=== PATIENT | female | born 1985 | race Caucasian/White ===

== ENCOUNTER 2021-09-28 10:55 | Outpatient (CLI) | payer OTHER, SELFPAY ==
[2021-09-28 13:41] LABS: Cholesterol* 147 mg/dL (90-199)
[2021-09-28 13:42] LABS: HDL Cholesterol* 59 mg/dL (>=50); LDL Cholesterol Calculated 73 mg/dL (<100); Triglycerides* 73 mg/dL (40-149)
[2021-09-28 14:08] LABS: HCG Quantitative* < 2.39 mIU/mL
== END 2021-09-28 10:56 | disposition home or self-care (01) ==
PROVIDERS: Visit Provider Advanced Practice Midwife
DX: Z01.419 Encounter for gynecological examination (general) (routine) without abnormal findings (principal); N93.9 Abnormal uterine and vaginal bleeding, unspecified
CPT/HCPCS: 80061; 84443; 84702; 87624; 88175

== ENCOUNTER 2022-05-01 09:00 | Outpatient (RCR) | payer OTHER, SELFPAY | END 2022-05-01 14:29 | disposition home or self-care (01) | PROVIDERS: Visit Provider Family Medicine | DX: M62.830 Muscle spasm of back (principal); Z51.89 Encounter for other specified aftercare | CPT/HCPCS: 97110; 97140; 97161 ==

== ENCOUNTER 2022-09-22 19:27 | Outpatient (CLI) | payer OTHER, SELFPAY ==
--- NOTE | 2022-10-02 08:36 | W.PM.SLEEP ---
Sleep Study Details Details Interpreting Provider: Tammy Date of Sleep Study: 09/22/22 Sleep Study Details: STUDY TYPE:? Home unattended ? BMI:? 22.3 ORDERING PROVIDER:Noe Lopez INDICATION:? Concerns about sleep apnea ? SLEEP SUMMARY:? 377.1 minutes monitored RESPIRATORY SUMMARY:? AHI 5.3, supine 7.6, left lateral 4.2, right lateral 3.6 Low oxygen 89 Snoring 28.3% PERIODIC LIMB MOVEMENTS OF SLEEP:? Not recorded during home study CARDIAC:? Range 56-100, mean 70.1 IMPRESSION:? Mild obstructive sleep apnea with some supine position dependency RECOMMENDATION: Treatment options if patient is symptomatic would include positional therapy, CPAP AutoSet 4-17, dental appliance and/or airway expansion surgery.
== END 2022-09-22 19:28 | disposition home or self-care (01) ==
LOC: SLEEP 19:27
PROVIDERS: PCP Family Medicine; Visit Provider Family Medicine
DX: G47.33 Obstructive sleep apnea (adult) (pediatric) (principal)
CPT/HCPCS: 95806

== ENCOUNTER 2022-12-27 09:15 | Outpatient (RCR) | payer OTHER, SELFPAY ==
--- NOTE | 2022-12-13 10:02 | PT.OPDN ---
PT [facility] Daily Note PT [facility] Daily Note Start: 10/16/22 08:52 Freq: Status: Active Protocol: Document 12/13/22 08:59 CJT (Rec: 12/13/22 10:02 CJT [email or web address]) E-signed By Yusuf Meier, PT PT OP Daily Progress Note Visit Information Note Type Daily Note Visit Number 12 Insurance Authorized Visits 16 Physician Authorized Visits eval and treat Insurance Information Recert Due Date 01/14/23 Insurance Name [employer] Insurance Information/Comments [employer] Medical Diagnosis M62.830 - muscle spasm of back M54.17 - radiculopathy, lumbosacral region M53.3 - sacrococcygeal disorders, not elsewhere classified G89.29 - other chronic pain Treating Diagnosis M54.5 - low back pain M62.830 - back spasm M79.605 - L leg pain Referring Freddy Handley MD Subjective Subjective Pt had a fall down her stairs at home yesterday. Was talking on the phone while carrying a laundry basket and tripped over a toy and fell down her stairs. She has had a significant amount of pain on the L side of her body since and presents today with a large deep purple bruise on her L thigh. Home Exercise Home Exercise Comments [id number] Objective Other/Pertinent Objective Pt presents with dark purple/ black bruising over L lateral thigh measuring approx 6x6- inch in circular pattern. Induration noted over center of bruise. Patient Instructed in Risks/Benefits Yes Therapeutic Exercise Therapeutic Exercise Minutes (minutes) 15 Therapeutic Exercise: To Restore Supine trunk rotations x 10 ea Functional Status T-spine rotations in S/L x 10 ea Cat cow x 10 Thread the needle x 45 ea 1/2 kneel hip flexor stretch x 60 ea 1/2 kneel adductor stretch x 60 ea Hip flexor to hamstring stretch x 10 ea Manual Therapy Techniques Manual Therapy Minutes (minutes) 30 Manual Therapy Techniques STM to L>R thoracic and lumbar paraspinals, QL, iliolumbar ligament, glute med/min, piriformis, hamstring, gastroc , and soleus to reduce tissue tension and improve extensibility. Treatment Minutes Timed Code Treatment Minutes 45 Total Treatment Time 45 Billing Units Manual Therapy Units 2 Therapeutic Exercise Units 1 Assessment/Impression Assessment/Impression Doreen notes that she feels much better following today's treatment. I had Doreen fill out another diagnostic form for fibromyalgia and her scoring does indicate that she meets the diagnostic criteria for fibromyalgia. Given Doreen's lingering and unusual symptoms, I do think it is prudent that she follows up with her PCP (Dr. Lopez ) as well as a lapper to seek other methods of treatment for her pain. Pt is due to have her annual exam with Dr. Lopez in January and I have encouraged her to ask about her pain and investigate the potential for diagnosis and treatment for fibromyalgia. Doreen has shown excellent progress in her strength, flexibility, and mobility during her time in therapy but she is continuing to have unusual patterns of pain that don't typically align with her level of disc herniation. I have asked Doreen's permission to reach out to Dr. Lopez regarding this issue and she gives verbal consent. Plan of Care Physical Therapy Goals STG - To be completed in 2-3 weeks: 1. Pt will report reduction in L leg pain by factor of 2 so that they may perform all ADLs with tolerable level of pain. 2. Pt will demonstrate ability to perform pelvic tilt with good coordination as indication of appropriate firing of pelvic and lumbar stabilizing muscles to provide greater support for pelvis and lumbar spine. LTG - To be completed in 8-12 weeks: 1. Pt to be I with HEP so that they may I manage progression of symptoms. 2. Pt will demonstrate 5/5 MMT for both upper and lower abdominals to provide greater support to pelvis and lumbar spine. 3. Pt will demonstrate negative slump test, SLR, Spurling's compression as indication of reduced pressure on spinal cord and or exiting nerve roots. 4. Pt will report absence of L LE pain during the day so that she may work a full day without interruptions due to pain and be involved with her children after working hours. Daily Plan of Care Continue per POC
--- NOTE | 2022-12-13 10:03 | REH.PT ---
Hi Dr. Lopez, please see my last daily note for Doreen Sweeney'young. I do feel that she would be a good candidate to explore the potential for a diagnosis of fibromyalgia. If you have any questions please don't hesitate to reach out. Doreen is due to follow-up with you for her annual visit in January. Thank you! Yusuf
== END 2023-01-15 14:50 | disposition home or self-care (01) ==
PROVIDERS: PCP Family Medicine; Visit Provider Family Medicine
DX: M62.830 Muscle spasm of back (principal); Z51.89 Encounter for other specified aftercare
CPT/HCPCS: 97110; 97140; 97161; 97530

== ENCOUNTER 2023-01-20 08:28 | Outpatient (CLI) | payer OTHER, SELFPAY | END 2023-01-20 08:29 | disposition home or self-care (01) | PROVIDERS: PCP Family Medicine; Visit Provider Family Medicine | DX: Z00.00 Encounter for general adult medical examination without abnormal findings (principal) | CPT/HCPCS: 86039; 86140 ==

== ENCOUNTER 2024-03-12 11:14 | Emergency (ER) | payer OTHER, SELFPAY ==
--- OUTSIDE RECORDS SUMMARY | 2024-03-12 11:17 | XMS_ITS ---
Author Organization [facility] Address [address] [place] [address] [address] [place] [address] Care Team Providers Care Storage Battery Inspector And Tester Name Role Phone Ptaricia Lopez MD Primary Care Provider Unav ailable Josse Tripp Unavailable [phone] REASON FOR VISIT post TFE pain Encounters Encounter Location Date Provider Diagnosis [facility] [address] [place] [address] [address] [place] [address] 03/12/2024 Josse Tripp Plan Of Treatment Next Appt Details Provider Name:Arian Pruitt , 03/22/2024 09:15:00 AM, [address], [address], [place], [address], Progress Notes * Sandrita MORENOOB:1985 (38 yo F)Acc No.[id number]:03/12/2024 Patient: Doreen BECERRA :1985 A ge:38 Y S ex:Female Phone: Address:[address] [place] [phone] * * Date:
--- OUTSIDE RECORDS SUMMARY | 2024-03-12 11:17 | XMS_ITS | Patient Health Record ---
Author Organization [facility] Address [address] [place] [address] [address] [place] [address] Care Team Providers Care Ecological Modeler Name Role Phone Patricia Lopez MD Primary Care Provider Unav Josse Orantes Unavailable [phone] Sebas Dash Unavailable [phone] Toni Talamantes Unavailable [phone] Arian Pruitt Unavailable [phone] Allergies No Known Allergies Reason For Referral Reason Please evaluate for persistent low back and bilateral lower extremity pain. Patient has a recent lumbar MRI at [facility]. Please call patient to schedule at [phone]. Diagnosis 1 Radiculopathy of lum bosacral region (M54.17) Referral Organization [facility] Referring Provider First Name Arian Referring Provider Last Name Edmond Referring Provider Speciality Nurse Prac titioner Referred Provider Mert Oliveros Referred Provider Specialty Neurosurgery General Notes Simi Brock 024 01:56:48 PM >Please call the patient to schedule and fax back all notes to [phone]. If you need additional records for this referral, please call [phone]. Thanks! Referral Priority Routine Medications Medication SIG (Take, Route, Frequency, Duration) Notes Start Date End Date Status tiZANidine HCl 2 MG 1 tablet as needed Orally three times a day for 30 days 02/02/2024 Active Meloxicam 15 MG 1 tablet Orally Once a day for 30 day(s) 02/02/2024 Active Escitalopram Oxalate 10 MG 1 tablet Oral ly Once a day Active Medrol 4 MG as directed on Medro l package Orally 1 pack for 6 days 03/11/2024 Active buPROPion HCl ER (XL) 300 MG 1 tablet in the morning Orally Once a day Active Cyclobenzaprine HCl 5 MG 1 tablet as nee ded Orally Once a day Active Social History Tobacco Use: Social History Observation Description Date Details (start date - stop date) Current Smoker NA - NA Tobacco Use/Smoking: Question Answer Notes Are you a current smoker How often do you smoke cigarettes? some days, bu t not every day How many cigarettes a day do you smoke? 5 or les s How soon after you wake up d o you smoke your first cigarette? after 60 minutes Are you interested in quitting? Ready to quit Alcohol Screen Question Answer Notes Did you have a drink containing alcohol in the p ast year? No Points 0 Interpretation Negative AUDIT-C (Standard) Question Answer Notes Did you have a drink containing alcohol in the p ast year? No Points 0 Interpretation Negative Problems Problem Type SNOMED Code ICD Code Onset Dates Problem Status W/U Status Risk Notes Problem Chronic pain (85817890) Other chronic pain (G89.29) Active confirmed Problem Lumbosacral radiculopathy (8680947) Radiculopathy, lumbosacral region (M54.17) Active confirmed Vital Signs Blood pressure diastolic 76 mm Hg 02/02/2024 Height 64 in 02/02/2024 Blood pressure systolic 118 mm Hg 02/02/2024 Weight 142 lbs 02/02/2024 BMI 24.37 kg/m2 02/02/2024 Procedures Procedure Date Ordered Date Performed Result Body Sit e Intervention: 07/08/2023 07/22/2023 sched 07/21 Intervention: 02/02/2024 02/09/2024 sched 02/23 Encounters Encounter Location Date Provider Diagnosis [facility] [address] [place] [phone] 2023 Josse Tripp Other chronic pain G89.29 and Low back pain, unspecified M54.50 [address] [facility] [address] [place] [address] 07/08/2023 Arian Pruitt Other chronic pain G89.29 and Radiculopathy of lumbosacral region M54.17 [address] [facility] [address] [place] [address] 07/22/2023 Josse Tripp Radiculopathy, lumbosacral region M54.17 [address] [facility] [address] [place] [address] 02/02/2024 Toni Talamantes Other chronic pain G89.29 and Radiculopathy, lumbosacral region M54.17 [address] [facility] [address] [place] [address] 03/02/2024 Josse Tripp Radiculopathy, lumbosacral region M54.17 [facility] [address] [place] [address] [address] [place] [address] 03/12/2024 Josse Tripp [facility] [address] [place] [address] [address] [place] [address] 05/27/2023 Josse Tripp [facility] [address] [place] [address] [address] [place] [address] 07/08/2023 Arian Pruitt [place] [address] [facility] [address] [address] 12/19/2023 Josse Tripp [facility] [address] [place] [address] [address] [place] [address] 02/23/2024 Josse Tripp [facility] [address] [place] [address] [address] [place] [address] 03/01/2024 Josse Tripp [facility] [address] [place] [address] [address] [place] [address] 03/09/2024 Sebas Dash Assessments Encounter Date Diagnosis (ICD Code) Assessment Notes Treatment Notes Treatment Clinical Notes Section Notes 2023 Other chronic pain (ICD-10 - G89.29) Doreen presents to the clinic for an evaluation regarding her chronic low back and left lower extremity pain. I have reviewed her symptoms and current medications. I checked the [facility] database and I did not find any inconsistencies. I will continue with a treatment plan consisting of conservative therapy at this time. I reviewed Doreen's previous lumbar MRI with her today in clinic. Since she states that her pain has worsened since her last lumbar MRI I am ordering an updated lumbar MRI today to identify the possible sources of her pain at this time. I will consider lumbar TFEs following review of her updated lumbar imaging. Regarding medications, I am starting her on Meloxicam at this time. I am also sending her a Medrol Dose Pack to address her current pain flare. Finally, I am increasing her Lyrica to 200MG twice per day since she notes that her current dosage is not providing her any pain relief, and she does not have any side effects from this medication. I also provided her a Toradol shot today in clinic to address her current pain. This treatment plan was reviewed with Doreen, and she was agreeable. She will return in three weeks for further evaluation or sooner if needed. I will continue to monitor her progress, adjusting her treatment plan as necessary. Plan:1. Reviewed lumbar MRI2. Order updated [facility] at [facility]. Start Meloxicam 15MG QD4. Start MDP5. Increase Lyrica to 200MG BID6. Toradol IM injection today7. Consider inj therapy8. Follow up in 3 weeks Discharge instructions reviewed verbally. Discussed the risks/benefits of prescribed medication.The patient is aware that medication may be discontinued at any time due to poor compliance with visits, and recommended treatment and/or if patient does adhere to the signed pain contract. The patient was instructed to return to the office as scheduled and call with any questions, problems or concerns. Lumbar MRI from 08/20/2022 IMPRESSION:1. At L5-S1, a left subarticular disc protrusion slightly posteriorly displaces the traversing left S1 nerve root. Correlate for radicular symptoms in this nerve root distribution. Subtle associated type 1 reactive marrow changes. 2. No spinal canla/neural foraminal stenosis or neural impingement elsewhere. 2023 Low back pain, unspecified (ICD-10 - M54.50) 07/08/2023 Other chronic pain (ICD-10 - G89.29) Doreen presents to the clinic for an evaluation regarding her chronic low back and left lower extremity pain. I have reviewed her symptoms and current medications. I checked the [facility] database and I did not find any inconsistencies. I will continue with a treatment plan consisting of conservative therapy at this time. I reviewed Doreen's recent lumbar MRI with her today in clinic; please see this MRI impression below. Based on the results of this imaging and her current pain patterns I am recommending a repeat bilateral L5-S1 TFE at this time to address her low back pain. She expressed a willingness to trial this injection again at this time, so I will order it for her today in clinic. I am also referring Doreen to Dr Oliveros for a surgical consultation at this time to see if she is a good surgical candidate at this time. This treatment plan was reviewed with Doreen, and she was agreeable. She will return in six weeks for further evaluation or sooner if needed. I will continue to monitor her progress, adjusting her treatment plan as necessary. Plan:1. Reviewed updated lumbar MRI2. Order a bilateral L5-S1 TFE3. Refer to Dr Oliveros for surgical consult4. Follow-up in 6 weeks - tel enc sent to scheduling Discharge instructions reviewed verbally. Discussed the risks/benefits of prescribed medication.The patient is aware that medication may be discontinued at any time due to poor compliance with visits, and recommended treatment and/or if patient does adhere to the signed pain contract. The patient was instructed to return to the office as scheduled and call with any questions, problems or concerns. Lumbar MRI from 06/25/2023 CONCLUSION: Severe L5-S1 disc degeneration with 7 mm left paracentral/sub articular disc protrusion. Transiting left S1 nerve impinged. 07/08/2023 Radiculopathy of lumbosacral region (ICD-10 - M54.17) 07/22/2023 Radiculopathy, lumbosacral region (ICD-10 - M54.17) 02/02/2024 Other chronic pain (ICD-10 - G89.29) Doreen returns to clinic today for a follow up evaluation regarding her chronic low back and bilateral lower extremity pain. I have reviewed the [facility] database and did not find any inconsistencies. We discussed her current symptoms and medications. I will continue with a treatment plan consisting of conservative therapy at this time. Doreen underwent a bilateral L5-S1 TFE on 07/22/2023 and reports 90% relief for 5-6 months. She reports that daily life and activities was much easier with the relief from the injection. After review of her symptoms and a physical examination, I have recommended repeating this procedure, and placed an order accordingly. Regarding medications, I have started her on tizanidine 2mg TID and meloxicam 15mg QD for better management of her symptoms. This treatment plan was reviewed with Doreen, and she was agreeable. I will continue to monitor her progress and she will follow up as needed. Plan: 1. Order repeat bilateral L5-S1 TFE 2. Start tizanidine and meloxicam 3. Follow up as needed Discharge instructions reviewed verbally. Discussed the risks/benefits of prescribed medication. The patient was instructed to return to the office as scheduled and call with any questions, problems or concerns. 02/02/2024 Radiculopathy, lumbosacral region (ICD-10 - M54.17) 03/02/2024 Radiculopathy, lumbosacral region (ICD-10 - M54.17) 2023 Other Jeanette, Madie Auguste, am serving as a scribe to document services personally performed by Arian Pruitt CNP, based upon my observations and the provider's statements to me. All documentation has been reviewed by the aforementioned JEWELER APPRENTICE as well as Josse Tripp MD, prior to being entered into the official medical record. Josse Reid MD attest that the above named individual is acting in scribe capacity, has observed Arian Pruitt's performance of the services and has documented them in accordance with her direction. The documentation recorded by the scribe accurately reflects the service Arian Pruitt CNP and Josse Tripp MD personally performed and the decisions made by them. Thank you very much Dr. Lopez for kindly referring Doreen to our practice. It is a pleasure to participate in her care. Please feel free to contact me with any questions or concerns. 07/08/2023 Other Madie Reid, am serving as a scribe to document services personally performed by Arian Pruitt CNP, based upon my observations and the provider's statements to me. All documentation has been reviewed by the aforementioned JEWELER APPRENTICE as well as Josse Tripp MD, prior to being entered into the official medical record. Josse Reid MD attest that the above named individual is acting in scribe capacity, has observed Arian Pruitt's performance of the services and has documented them in accordance with her direction. The documentation recorded by the scribe accurately reflects the service Arian Pruitt CNP and Josse Tripp MD personally performed and the decisions made by them. 02/02/2024 Other Katie Reid , am serving as a scribe to document services personally performed by Toni Talamantes PA-C, based upon my observations and the provider's statements to me. All documentation has been reviewed by the aforementioned ZEINAB. I, Toni Talamantes PA-C, attest that the above named individual is acting in scribe capacity, has observed my performance of the services and has documented them in accordance with my direction. The documentation recorded by the scribe accurately reflects the service I personally performed and the decisions made during the clinic visit. Plan Of Treatment Pending Test Test Name Order Date MRI : Lumbar 2023 Next Appt Details Provider Name:Arian Pruitt , 03/22/2024 09:15:00 AM, [address], [address], [place], [address], Insurance Providers Payer Name Payer Address Payer Phone Subscriber Number Group Number Insured Name Patient Relationship to Insured Coverage Start Date Coverage End Date [facility] [address] [address] [place] [address] [id number] Doreen Moreno Self - patient is the insured Medications Administered Medication Instructions Date of Administration Dosage Notes Toradol 2023 1 mL Medical (General) History Medical History History ICD Code anxiety depression fibromyalgia sleep apnea
--- OUTSIDE RECORDS SUMMARY | 2024-03-12 11:17 | XMS_ITS ---
Author Organization [facility] Address [address] [place] [address] [address] [place] [address] Care Team Providers Care Assessment Expert Name Role Phone Patricia Lopez MD Primary Care Provider Josse Cage Unavailable [phone] Sebas Dash Unavailable [phone] REASON FOR VISIT Post procedure pain Medications Medication SIG (Take, Route, Frequency, Duration) Notes Start Date End Date Status Medrol 4 MG as directed on Medro l package Orally 1 pack for 6 days 03/11/2024 Active Encounters Encounter Location Date Provider Diagnosis [facility] [address] [place] [address] [address] [place] [address] 03/09/2024 Sebas Dash Plan Of Treatment Medication Medication Name Sig Start Date Stop Date Notes Medrol 4 MG as directed on Medro l package Orally 1 pack for 6 days 03/11/2024 Next Appt Details Provider Name:Arian Pruitt , 03/22/2024 09:15:00 AM, [address] [facility] [address], [place], [address], Progress Notes * Sandrita MORENOOB:1985 (38 yo F)Acc No.[id number]:03/09/2024 Patient: Doreen BECERRA :1985 A ge:38 Y S ex:Female Phone: Address:[address] [place] [phone] * Refills Start Medrol Tablet Therapy Pack, 4 MG, Orally, 1 pack, as directed on Medrol package, 1 pack, 6 days, Refills=0 * true * Date: Generated for Printi ng/Faxing/eTransmitting on: 1 05/13/2023 11:17 AM ELIGIBILITY AND OCCUPANCY INTERVIEWER
--- OUTSIDE RECORDS SUMMARY | 2024-03-12 11:17 | XMS_ITS ---
Author Organization [facility] Address [address] [place] [address] [address] [place] [address] Care Team Providers Care Territory Sales Executive Name Role Phone John MONCADA, Patricia Primary Care Provider Elvav Josse Orantes Unavailable [phone] REASON FOR VISIT local repeat bilateral L5-S1 TFE injection a Encounters Encounter Location Date Provider Diagnosis [address] [facility] [address] [place] [address] 03/02/2024 Josse Tripp Radiculopathy, lumbosacral region M54.17 Assessments Encounter Date Diagnosis (ICD Code) Assessment Notes Treatment Notes Treatment Clinical Notes Section Notes 03/02/2024 Radiculopathy, lumbosacral region (ICD-10 - M54.17) Plan Of Treatment Next Appt Details Provider Name:Arian Pruitt , 03/22/2024 09:15:00 AM, [address], [address], [place], [address], Progress Notes * Sandrita MORENOOB:1985 (38 yo F)Acc No.[id number]:03/02/2024 Patient: Doreen BECERRA Provider: Delvis Tripp M.D. :1985 A ge:38 Y S ex:Female Date:03/02/2024 Phone: Address:[address] [place] [id number] Pcp:Patricia Lopez MD * Billing Information: * Visit Code: * Procedure Codes: 21402 Transforaminal L or S single. Modifiers: 50 20243 Urine Test. Modifiers: QW A4209 5 cc - 19 cc gauge syringe. A4930 Gloves, size 8. A4215 [place] only Sterile any size each. Units: 2.00. A4550 Spinal Support Tray. Q9967 Omnipaque 300 mgl/mL. Units: 3.00. J0665 Inj, bupivacaine, nos, 0.5mg. J3301 Kenalog 40 mg/ml. Units: 2.00. * TIVE SERVICES DIRECTOR Sign off status: Completed true * Provider: Delvis Tripp M.D. Date: 05/03/2023 Generated for Sofiya medellin/Sky/Yuitting on: 05/13/2023 11:17 AM CREATIVE SERVICES DIRECTOR
[2024-03-12 11:37] VITALS: BP 131/82; PULSE 81; RESP 16; TEMP 36.6; O2SAT 97; BMI 23.2
== END 2024-03-12 13:28 | disposition left against medical advice (07) ==
LOC: ED 12:52
PROVIDERS: PCP Family Medicine
DX: Z53.21 Procedure and treatment not carried out due to patient leaving prior to being seen by health care provider (principal)

== ENCOUNTER 2024-10-27 19:38 | Emergency (ER) | payer OTHER, SELFPAY ==
--- OUTSIDE RECORDS SUMMARY | 2024-02-24 04:30 | XMS_ITS ---
Author Organization [facility] Address [address] [place] [address] [address] [place] [address] Care Team Providers Care Claim Analyst Name Role Phone John MONCADA, Patricia Primary Care Provider Unav Josse Orantes Unavailable [phone] REASON FOR VISIT localrepeat bilateral L5-S1 TFE injection Encounters Encounter Location Date Provider Diagnosis [facility] [address] [facility] [address] [place] [address] 02/24/2024 Josse Tripp Radiculopathy, lumbosacral region M54.17 Assessments Encounter Date Diagnosis (ICD Code) Assessment Notes Treatment Notes Treatment Clinical Notes Section Notes 02/24/2024 Radiculopathy, lumbosacral region (ICD-10 - M54.17) Plan Of Treatment No Information Progress Notes * Sandrita MORENOOB:1985 (39 yo F)Acc No.[id number]:02/24/2024 Patient: Doreen BECERRA Provider: Delvis Tripp M.D. :1985 A ge:38 Y S ex:Female Date:02/24/2024 Phone: Address:[address] [place] [id number] Pcp:Patricia Lopez MD * Billing Information: * Visit Code: * Procedure Codes: 39430 Transforaminal L or S single. Modifiers: 50 A4209 5 cc - 19 cc gauge syringe. A4930 Gloves, size 8. Units: 2.00. A4215 Crandall only Sterile any size each. Units: 2.00. A4550 Spinal Support Tray. Q9967 Omnipaque 300 mgl/mL. Units: 3.00. J0665 Inj, bupivacaine, nos, 0.5mg. J3301 Kenalog 40 mg/ml. Units: 2.00. * Electronic signature of Selvin Tripp MD on 10/27/2024 at 07:41 PM CDT Sign off status: Pending * Provider: Delvis Tripp M.D. Date: 04/26/2023 Generated for Sofiya medellin/Sky/Yuitting on: 0 10/27/2024 07:41 PM CDT
--- OUTSIDE RECORDS SUMMARY | 2024-10-27 19:41 | XMS_ITS | Clinical Summary ---
Author Organization [facility] Address [facility] [place] [address] Care Team Providers Care Histologic Technician Name Role Phone Pcp, No Primary Care Provider Unavailabl e Allergies No known active allergies Medications Iprjphgx-Ji-Udy-F e-FA ( VITAMIN) tab tablet Take 1 tablet by mouth once daily. 0 03/03/20 18 Active acetaminophen (TYLENOL) 325 mg tablet Take 1-2 tablets by mouth every 4 hours if needed (mild pain). Max acetaminophen dose: 4000mg in 24 hrs. 100 tablet Active Breast Pump - PurchaseIndicatio ns:Lactating mother (HC) For home use. Reason for need: lactating mother. Length of need: 12 months 1 Device 09/16/19 19 Active drospirenone-ethi nyl estradiol (JONATHON, 28,) 3-0.03 mg tabletIndications :Oral contraception initial prescription Take 1 tablet by mouth once daily. 3 Package 4 10/21/19 19 Active Active Problems Problem Noted Date Diagnosed Date Supervision of other normal , antepartu m 03/02/2018 Overview (06/02/2018): 32 yo BMI: 22. Recommend 25-35# weight gain History of depression , last treated in '11. Genetic testing: desires NT sequential. History of vac assist delivery, 5#9 oz '12. Melo 37 weeks, due to heart rate. Arrived at hospital at 10 cm dilation. This is new FOB. Single, involved with FOB: Herman History of LEEP 05/04 ( FERMIN 2-3) Tobacco abuse 05/16/2017 Severe dysplasia of cervix (FERMIN III) 04/25/2017 Cancer Staging:Clinical: Unsigned H/O LEEP 04/25/2017 Overview (11/05/2018): 02/13/2017 ASCUS/HPV+ 03/03/2017 [place] FERMIN II-III 04/25/2017 LEEP FERMIN III, Positive margins 03/03/2018 NIL/HPV+ 03/27/2018 Colposcopy: No biopsy () 10/20/2018 ASCUS/HPV negative Plan: Pap/HPV due 10/2019 Resolved Problems Problem Noted Date Diagnosed Date Resolved Date ASCUS with positive high risk HPV cervical 02/13/2017 03/23/2018 Overview (02/26/2017): 02/13/2017 ASCUS/HPV positive - Plan: Colposcopy advised Normal delivery 07/12/2011 03/03/2017 Supervision of normal first 05/09/2011 03/03/2017 Overview (07/03/2011): Healthy Ultrasound at 20 weeks, noted anterior fibroid, anterior placenta History of depression Supervision of normal first 03/14/2011 05/23/2011 Cannabis abuse, unspecified 12/01/2007 05/23/2011 Other specified viral warts 06/26/2005 05/23/2011 Depressive disorder, not elsewhere classified 06/27/19 06 05/23/2011 Depressive disorder, not elsewhere classified 06/27/19 06 06/26/2005 Syncope and collapse 06/13/2005 012 Goiter, unspecified 06/13/2005 05/23/19 12 Anorexia 05/23/2011 Immunizations Immunization Administration Dates Next Due DTP 01/09/1988,[birth year] Influenza, IIV4 03/03/2018 MMR 09/24/1988 Oral Polio Vaccine [birth year] Tdap 06/30/2018,06/13/2011 06/12/2021 Family History Medical History Relation Name Comments Diabetes Maternal Grandfather Relation Name Status Comments Father Alive Maternal Grandfather Alive Maternal Grandmother Mother Alive Paternal Grandfather Paternal Grandmother Alive Sister Alive Son Alive Social History Tobacco Use Types Packs/Day Years Used Date Smoking Tobacco: Former Cigarettes 0.3 12.3 1 03/18/2004 - 05/22/2017 Smokeless Tobacco: Never Tobacco Cessation:Counseling Given: Yes Alcohol Use Standard Drinks/Week Comments No 1 (1 standard drink = 0.6 oz pur e alcohol) occasional glass of wine PHQ-2 Answer Date Recorded PHQ-2 Score 0 05/18/2018 Comments No Sex and Gender Information Value Date Recorded Sex Assigned at Not on file 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 Gender Identity Not on file Sexual Orientation Not on file Obstetrics History Para Term AB IAB SAB Ectopic Multiple Livin g Live Births 2 2 2 0 0 0 0 0 0 2 2 Date Outcome GA Total Labor Labor/2nd/3rd Weight Sex Type Anes PTL Nikky A1 A5 Name Clin 2011 Term 37w 2d 2.53 kg (5 lb 9.1 oz) M Vag-V acuum Livin g 6 9 SAUNDE RS,BB (FRANC INE) Delivery Location:[facility] Comments:BLN:[facility] 2018 Term 39w 0d 0h 04m 3.28 kg (7 lb 3.7 oz) F Vag Epidur al Livin g 9 10 SAUNDE RS,BG VIANCA NE Complications:None Delivery Location:[facility] (UTD 2000 MB L&D TRIAGE) Last Filed Vital Signs Vital Sign Reading Time Taken Comments Blood Pressure 106/58 10/20/2018 1:50 PM CDT Pulse 66 10/20/2018 1:50 PM CDT Temperature 36.8 C (98.3 F) 09/15/2018 7:45 AM CDT Respiratory Rate 18 09/15/2018 7:45 AM CDT Oxygen Saturation 97% 09/15/2018 7:45 AM CDT Inhaled Oxygen Concentration - - Weight 75.2 kg (165 lb 12.8 oz) 10/20/2018 1:50 PM CDT Height 163.8 cm (5' 4.5) 10/20/2018 1:50 PM CDT Body Mass Index 28.02 10/20/2018 1:50 PM CDT Plan of Treatment Health Maintenance Due Date Last Done Comments Hepatitis B series for 19+ (1 of 3 - 19+ 3-dose series) 06/16/2006 BMI (ht and wt on same day) for age 18+ 10/21/2019 10/20/2018, 01/16/2018, 03/03/2017, Additional history exists Depression screening for age 12+ 10/21/2019 10/20/2018, 06/30/2018, 06/30/2018, Additional history exists Pap test for age 21-65 09/28/2022 , 09/28/2021, 04/28/2020, Additional history exists COVID-19 vaccine series ( season) 2023 Influenza Vaccine (#1) 2024 03/03/2018 Tetanus booster 06/30/2028 06/30/2018, 05/16, 09/04/2010 ([facility]) HIV for age 15-65 Completed 01/16/2018, 02/14/2011 Hepatitis C screening for age 18-79 Completed 01/16/2018, 02/14/2011 Pneumococcal series for age 6-49 Aged Out No longer eligible based on patient's age to complete this topic Procedures Procedure Name Priority Date/Time Associated Diagnosis Comments A P MANAGER THIN PREP PAP SCREEN IMAGED Routine 09/28/2021 11:20 AM CDT ANTI HIV 1/2 Routine 01/16/2018 11:07 AM CDT Encounter for supervision of normal first in first trimester (HC) ANTI HCV Routine 01/16/2018 11:07 AM CDT Encounter for supervision of normal first in first trimester (HC) from Last 3 Months or Most Recently Relevant to Health Maintenance Results * A P MANAGER THIN PREP PAP SCREEN IMAGED (09/28/2021 11:20 AM CDT) Case Report Gynecologic Cytology Report Case: [id number] Authorizing Provider: Nena Richter CNM Collected: 09/28/2021 1120 Ordering Location: [facility] Received: 10/01/2021 1318 First Screen: Baccam, Minie Rescreen: Vanessa Rivera Specimen: A P MANAGER ThinPrep Vial Screening, Cervical 10/16/2021 10:25 AM CDT [facility] INTERPRETATION/ RESULT NEGATIVE FOR INTRAEPITHELIAL LESION OR MALIGNANCY (NIL) (none) 10/16/2021 10:25 AM CDT [facility] at 1024 CDT SPECIMEN ADEQUACY Satisfactory for evaluation Endocervical component present 10/16/2021 10:25 AM CDT [facility] HPV REQUEST HPV and PAP 10/16/2021 10:25 AM CDT [facility] Date of LMP 10/16/2021 10:25 AM CDT [facility] Comment:61 Last Pap Result 10:25 AM CDT [facility] Comment:LSIL, HPV pos Abnormal Pap or [place] Bx in last 5 years Yes 10/16/2021 10:25 AM CDT [facility] Menstrual Status Abnormal bleeding 10/16/2021 10:25 AM CDT [facility] [place] Bx Done Today No 10/16/2021 10:25 AM CDT [facility] Additional Information 10/16/2021 10:25 AM CDT [facility] Comment: Interpreted at [facility] Laboratory - [address], [place] [address] Automated Review Successful 10/16/2021 10:25 AM T [facility] Comment:Specimen processed s uccessfully by automated feed house supervisor device, ThinPrep Imaging System, [employer] ANCILLARY TESTING A P MANAGER HPV Ordered, Please see separate report 10/16/2021 10:25 AM [facility] Note The pap test is a screening technique, not a diagnostic procedure. It is used primarily to screen for squamous cancers and precursor lesions. Published studies have shown that it is subject to both false negative and false positive results. The pap test should not be used as the sole means to diagnose or exclude pre-malignant and malignant lesions. 10/16/2021 10:25 AM CDT [facility] Other (Cervical) 09/28/2021 11:20 AM CDT 10/01/2021 1:18 PM CDT Nena Richter CN PATHOLOGY/CYTOLOGY Final Re sult [facility] [address] [place] [address], * ANTI HCV (01/16/2018 11:07 AM CDT) HEPATITIS C ANTIBODY Non-React karin Non-React karin 01/16/2018 4:44 PM CDT [facility] Comment:Antibodies to HCV no t detected; does not exclude the possibility of exposure to HCV. Blood BLOOD SPECIMEN / Unknown Venipuncture / Unknown 01/16/2018 11:07 AM CDT 01/16/2018 11:07 AM CDT [facility] SEND OUTS Final R esult Performing Organization Address City/[facility]/ZIP Co de Phone Number [facility] [address] [place] [address], * ANTI HIV 1/2 (01/16/2018 11:07 AM CDT) HIV-1/HIV-2 ANTIBODY Non-Reacti ve Non-Reacti ve 01/16/2018 5:08 PM CDT [facility] Comment:HIV-1 p24 and HIV-1/ HIV-2 Ab not detected. Blood BLOOD SPECIMEN / Unknown Venipuncture / Unknown 01/16/2018 11:07 AM CDT 01/16/2018 11:07 AM CDT [facility] SEND OUTS Final R esult [facility] [address] [place] [address], from Last 3 Months or Most Recently Relevant to Health Maintenance Insurance [employer] Advance Directives * Full Code (Latest Code Status on File) Date Activated Date Inactivated Comments 09/14/2018 1:28 AM 09/15/2018 1:23 PM * Full Code Date Activated Date Inactivated Comments 07/11/2011 11:13 PM 07/12/2011 4:23 AM Care Teams Histologic Technician Relationship Specialty Start Date End Date Pcp, No . PCP - General 02/17/19
--- OUTSIDE RECORDS SUMMARY | 2024-10-27 19:41 | XMS_ITS | Patient Health Record ---
Author Organization [facility] Address [address] [place] [address] [address] [place] [address] Care Team Providers Care Assistant Professor Of Economics Name Role Phone Patricia Lopez MD Primary Care Provider Unav Josse Orantes Unavailable [phone] Sebas Dash Unavailable [phone] Toni Talamantes Unavailable [phone] Arian Pruitt Unavailable [phone] Allergies No Known Allergies Reason For Referral No Information Medications Medication SIG (Take, Route, Frequency, Duration) Notes Start Date End Date Status predniSONE 10 MG 1 tablet Orally star t three times a day for 5 days, then take twice a day for 5 days, then once a day for 5 days; Duration: 15 days 03/22/2024 Active buPROPion HCl ER (XL) 300 MG 1 tablet in the morning Orally Once a day Active Escitalopram Oxalate 10 MG 1 tablet Orally Once a day Not-Taking Celecoxib 200 MG 1 capsule with food Orally Once a day 03/22/2024 Active DULoxetine HCl 30 MG 1 capsule Orally Tw ice a day 03/22/2024 Active tiZANidine HCl 2 MG 1-2 tablet as needed Orally three times a day; Duration: 30 days Active Social History Tobacco Use: Social History [...] W/U Status Risk Notes Problem Chronic pain (83928867) Other chronic pain (G89.29) Active confirmed Problem Lumbosacral radiculopathy (9136981) Radiculopathy, lumbosacral region (M54.17) Active confirmed Vital Signs Blood pressure diastolic 88 mm Hg 03/22/2024 Height 64 in 03/22/2024 Blood pressure systolic 124 mm Hg 03/22/2024 Weight 142 lbs 03/22/2024 BMI 24.37 kg/m2 03/22/2024 Procedures Procedure Date Ordered Date Performed Result Body Sit e Intervention: 02/02/2024 02/09/2024 sched 02/23 Encounters Encounter Location Date Provider Diagnosis [place] [address] [facility] [address] [address] 12/19/2023 Josse Tripp [facility] [address] [facility] [place] [address] 02/23/2024 Josse Tripp [facility] [address] [place] [address] 03/01/2024 Josse Tripp [facility] [address] [place] [address] [address] [place] [address] 03/09/2024 Sebas Dash [facility] [address] [place] [address] [address] [place] [address] 03/12/2024 Josse Tripp [facility] [address] [place] [address] [address] [place] [address] 03/22/2024 Arian Pruitt Other chronic pain G89.29 [address] [facility] [address] [place] [address] 02/02/2024 Toni Talamantes Other chronic pain G89.29 and Radiculopathy, lumbosacral region M54.17 [address] [facility] [address] [place] [address] 03/22/2024 Arian Pruitt Other chronic pain G89.29 and Radiculopathy, lumbosacral region M54.17 [address] [facility] [address] [place] [address] 03/02/2024 Josse Tripp Radiculopathy, lumbosacral region M54.17 Assessments Encounter Date Diagnosis (ICD Code) Assessment Notes Treatment Notes Treatment Clinical Notes Section Notes 03/02/2024 Radiculopathy, lumbosacral region (ICD-10 - M54.17) 02/02/2024 Other chronic pain (ICD-10 - G89.29) Doreen returns to clinic today for a follow up evaluation regarding her chronic low back and bilateral lower extremity pain. I have reviewed the [facility] database and did not find any inconsistencies. [...] 02/02/2024 Radiculopathy, lumbosacral region (ICD-10 - M54.17) 03/22/2024 Other chronic pain (ICD-10 - G89.29) 03/22/2024 Other chronic pain (ICD-10 - G89.29) Doreen returns to clinic today for a follow up evaluation regarding her chronic pain. We discussed her current symptoms and medications. Regarding medications, I have reviewed the [facility] database and did not find any inconsistencies. I advised her to continue her Lyrica and duloxetine in an effort to provide more relief. I will also increase her tizanidine from 2MG TID PRN from 2MG #1-2 TID PRN and start a prednisone taper for improved relief as well. This treatment plan was reviewed with Doreen, and she was agreeable. I will continue to monitor her progress and she will follow up as needed. Plan: 1. Continue Lyrica 2. Continue duloxetine 3. Increase tizanidine from 2MG TID PRN to 2MG #1-2 TID PRN 4. Start prednisone taper 5. Follow up as needed Discharge instructions reviewed verbally. Discussed the risks/benefits of prescribed medication. The patient was instructed to return to the office as scheduled and call with any questions, problems or concerns. 03/22/2024 Radiculopathy, lumbosacral region (ICD-10 - M54.17) 03/22/2024 Other Philippe Reid, am serving as a scribe to document services personally performed by Arian Pruitt CNP, based upon my observations and the provider's statements to me. All documentation has been reviewed by the aforementioned SUPERCHARGE REPAIR SUPERVISOR. I, Arian Pruitt CNP, attest that the above named individual is acting in scribe capacity, has observed my performance of the services and has documented them in accordance with my direction. The documentation recorded by the scribe accurately reflects the service I personally performed and the decisions made during the clinic visit. 02/02/2024 Other Katie Reid , am serving as a scribe to document services personally performed by Toni Talamantes PA-C, based upon my observations and the provider's statements to me. All documentation has been reviewed by the aforementioned ZEINAB. Jeanette, Toni Talamantes PA-C, attest that the above [...] Name Order Date MRI : Lumbar 2023 Insurance Providers Payer Name Payer Address Payer Phone Subscriber Number Group Number Insured Name Patient Relationship to Insured Coverage Start Date Coverage End Date [facility] [address] [address] [facility] [place], [place] [address] [id number] Doreen Moreno Self - patient is the insured Medications Administered Medication Instructions Date of Administration Dosage Notes Toradol 2023 1 mL Medical (General) History Medical History History ICD Code anxiety depression fibromyalgia sleep apnea
[2024-10-27 19:54] VITALS: BP 132/85; PULSE 88; RESP 18; TEMP 36.7; O2SAT 100; BMI 22.0
--- NOTE | 2024-10-27 20:12 | ED_ITS ---
HPI - Back Pain/Injury General Time Seen by Provider: 20:12 Date Seen: 10/27/24 Chief Complaint: Back Injury/Pain Stated Complaint: herniated disk Time Seen by Provider: 10/27/24 19:59 Source: patient and RN notes reviewed Mode of arrival: ambulatory Limitations: no limitations History of Present Illness HPI Narrative: This 39-year-old female is coming into the ER accompanied by her with complaint of low back pain going down her left leg. She drove 90 minutes back from her mom's house on Friday, does have small children but has no definite trauma or event precipitating her back pain. Her low back is been bothering her the last 3 days, she is getting pain radiating down the left leg, goes all the way down the leg into the foot. Sometimes she will feel numbness tingling, states she feels through the whole leg. She has had no bowel or bladder loss of control or incontinence, his still been urinating and defecating fine. No fevers or chills, no trauma. She states she has had injections in her back before for herniated disc at L5-S1. She has some 10 mg prednisone at home, did take 2 or 3 tablets yesterday and a couple the day before, she did not take anything today just trying to get through. She is unable to lie down to sleep, she states she has been leaning forward trying to lean on things to sleep. Sitting is bother some. She is having a hard time getting comfortable. She has Vistaril at home which she has used, she has baclofen and tizanidine, nothing has helped. She has both gabapentin and Lyrica at home, has been using the Lyrica for pain modification. Nothing is relieving this. She has not really done any Tylenol in we have discussed this. I do understand and agree that Tylenol alone for her might not be sufficient but as we make a plan of pain management, the addition of the Tylenol might give her a little extra coverage any even if it is only 10% is going to be something. She does agree to add in Tylenol. She has been trying her PT exercises, nothing is really helping. She has a lumbar MRI in our system from 2022. IMPRESSION: 1. At L5-S1, a left subarticular disc protrusion slightly posteriorly displaces the traversing left S1 nerve root. Correlate for radicular symptoms in this nerve root distribution. Subtle associated type 1 reactive marrow changes. 2. No spinal canal/neural foraminal stenosis or neural impingement elsewhere. MD elicited complaint: back pain Related Data Home Medications ?Medication ?Instructions ?Recorded ?Confirmed levonorgestrel 17.5 mcg/24 hr (up 1 device intrauterin e ONCE 08/05/22 06/07/24 to 5 yrs) 19.5mg intrauterine device (Kyleena) Previous Rx's ?Medication ?Instructions ?Recorded cyclobenzaprine 5 mg tablet 5 mg PO 3XD PRN for muscle spasm 05/24/24 #30 tabs escitalopram oxalate 20 mg tablet 20 mg PO QDAY #90 ta bs 06/07/24 (Lexapro) baclofen 10 mg tablet 10 mg PO BID PRN muscle spas m #60 06/24/24 tabs bupropion HCl 150 mg 24 hr tablet, 150 mg PO QAM #30 t abs 07/19/24 extended release nortriptyline 25 mg capsule 25 mg PO QHS #90 caps 08/08 gabapentin 300 mg capsule 300 mg PO 3XD PRN for anxiet y #90 08/17/24 caps oxycodone 5 mg tablet 5 mg PO Q6H PRN pain #8 tabs 10/27/24 Allergies Allergy/AdvReac Type Severity Reaction Status Date / Time No Known Allergies Allergy Verified 06/07/24 13:41 Review of Systems Narrative: As per HPI. [facility] Medical History Fibroid ?D21.9 - Benign neoplasm of connective and other soft tissue, unspecified (ICD-10) Back spasm ?M62.830 - Muscle spasm of back (ICD-10) Pre-eclampsia ?O14.90 - Unspecified pre-eclampsia, unspecified trimester (ICD-10) Surgical History H/O wisdom tooth extraction ?K08.409 - Partial loss of teeth, unspecified cause, unspecified class (ICD- 10) H/O LEEP ?Z98.890 - Other specified postprocedural states (ICD-10) Family History Mother Diabetes High blood pressure High cholesterol Depression Thyroid disease Father Diabetes Maternal Grandfather High blood pressure High cholesterol Maternal Grandmother Depression Paternal Grandfather Colon cancer Social History Smoking Status: Current every day smoker Do you use any of these nicotine containing products: None How often do you have a drink containing alcohol: never How often do you have six or more drinks on one occasion: Never AUDIT-C Alcohol total score: 0 Non-prescribed substance use: denies use service: No Exam Const: Vital Signs, click to edit/add: Vital Signs - 24 hr 10/27/24 19:54 Temperature 98.0 F Pulse Rate [Pulse Oximeter] 88 Respiratory Rate 18 Blood Pressure [Ri ght Upper Arm] 132/85 Pulse Oximetry 100 Oxygen Delivery Me thod Room Air This 39-year-old female who is alert, interactive, no apparent distress. She is very pleasant but standing in the room. Has discomfort when attempting to sit on the bed, will sit very briefly but then needs to stand back up. She can walk on her toes, she can walk on her heels. She has good peripheral pulses, no lower extremity edema. She has normal light touch sensation of her feet and lower extremities. Her gait is normal albeit slow. She sits down on the bed slowly, is able to get up quickly. She is a positive straight leg raise on the left. There is no midline tenderness over spine, no definite reproducible paraspinous tenderness throughout her lumbar spine. She does complain of some increased pain when I palpate sat a cannot chin left buttock area. DTRs are about 1 to 2+ at the patellas and symmetric. Did not attempt Achilles as she was uncomfortable continuing to sit. Really she can only sit for maybe 10-20 seconds at a time on the bed. Documenting provider has reviewed patient's vital signs: yes Course Course ED Course: Did discuss we will have her use Tylenol with her pain management. I do think she needs more prednisone, she will put her 10 mg tablets away and we will use 20 twice a day from [facility]. Unfortunately there is no oxycodone right now, give her the option of doing some [place] or an oral dose of oxycodone here, she will take the oxycodone. I will send a few tablets in for her and she is aware that she needs to talk to her clinic tomorrow for further pain management in management of her back pain. She may need an updated MRI and consideration for injection as before. Will leave this to her to follow up in clinic. There are no red flag symptoms or warning symptoms necessitating any emergent imaging at this time. Vital Signs Vital signs: Initial Vital Signs Temperature 98.0 F 10/27/24 19:54 Temperature Source Temporal Artery Scan 10/27/24 19:54 Pulse Rate 88 10/27/24 19:54 Pulse Rhythm Regular 10/27/24 19:54 Respiratory Rate 18 10/27/24 19:54 Blood Pressure 132/85 10/27/24 19:54 Blood Pressure Mean 100 10/27/24 19:54 Blood Pressure Position Sitting 10/27/24 19:54 Pulse Oximetry 100 10/27/24 19:54 Oxygen Delivery Method Room Air 10/27/24 19:54 Vital Signs Temperature 98.0 F 10/27/24 19:54 Pulse Rate 88 10/27/24 19:54 Respiratory Rate 18 10/27/24 19:54 Blood Pressure 132/85 10/27/24 19:54 Pulse Oximetry 100 10/27/24 19:54 Oxygen Delivery Method Room Air 10/27/24 19:54 Temperature 98.0 F 10/27/24 19:54 Pulse Rate 88 10/27/24 19:54 Respiratory Rate 18 10/27/24 19:54 Blood Pressure 132/85 10/27/24 19:54 Pulse Oximetry 100 10/27/24 19:54 Oxygen Delivery Method Room Air 10/27/24 19:54 Discharge Plan Discharge Clinical Impression: Sciatica Qualifiers: Laterality: left Qualified Code(s): M54.32 - Sciatica, left side Patient Disposition: Home, Self-Care Condition: Stable Instructions: Sciatica (ED) Additional Instructions: Take prednisone 20 mg twice a day for 5 days, take with food. Can continue to use your muscle relaxants per prescriptions that you have at home. Use Tylenol 1000 mg 3 times a day baseline for pain. You can stay on your Lyrica or gabapentin whichever you choose and follow the prescription at home. Can use oxycodone as prescribed, you will need to get further pain management from your clinic. You need to contact her clinic tomorrow and get scheduled for a follow- up as soon as possible. If you have any warning symptoms develop as outlined in the handout, please seek re-evaluation. Activity Level: Activity as Tolerated Prescriptions: New oxycodone 5 mg tablet 5 mg PO Q6H PRN (Reason: pain) Qty: 8 0RF No Action escitalopram oxalate [Lexapro] 20 mg tablet 20 mg PO QDAY Qty: 90 3RF Kyleena 17.5 mcg/24 hrs (5 yrs) 19.5 mg intrauterine device 1 device intrauterine ONCE Rx Instructions: as a single dose bupropion HCl 150 mg tablet extended release 24 hr 150 mg PO QAM Qty: 30 12RF nortriptyline 25 mg capsule 25 mg PO QHS Qty: 90 3RF cyclobenzaprine 5 mg tablet 5 mg PO 3XD PRN (Reason: for muscle spasm) Qty: 30 0RF baclofen 10 mg tablet 10 mg PO BID PRN (Reason: muscle spasm) Qty: 60 1RF gabapentin 300 mg capsule 300 mg PO 3XD PRN (Reason: for anxiety) Qty: 90 5RF Follow Up/Referrals: Patricia Lopez MD [Primary Care Provider, Family Practice] Stand Alone Forms: [employer] Info Instructions
== END 2024-10-27 20:53 | disposition home or self-care (01) ==
PROVIDERS: Emergency Provider Family Medicine; PCP Family Medicine
DX: M54.32 Sciatica, left side (principal)
CPT/HCPCS: 96372; 99283; A9270; J1885

== ENCOUNTER 2024-11-12 14:12 | Outpatient (CLI) | payer OTHER, SELFPAY ==
--- NOTE | 2024-11-12 14:30 | CRLHL7_ITS ---
For Patients: As a result of the Century Cures Act, medical imaging exams and procedure reports are released immediately into your electronic medical record. You may view this report before your referring provider. If you have questions, please contact your health care provider. Indication: Radiculopathy. Technique: Multiplanar multisequence noncontrast MR images of lumbar spine. Comparison: MR lumbar spine 08/20/2022. Findings: The lumbar lordosis is preserved. Vertebral heights are maintained. No acute fracture. No T1 hypointense lesion or marrow edema. Normal conus terminates at L1. T12-L1 through L3-4: No spinal canal or neural foraminal narrowing. L4-5: Mild disc degeneration. Annular bulge. No spinal canal or neural foraminal narrowing. L5-S1: Mild retrolisthesis. Moderate disc degeneration. Disc height loss. Type 2 degenerative signal changes. Posterior disc bulging and endplate spondylitic ridging. Left subarticular disc protrusion measuring 9 mm in anteroposterior dimension has increased in size, severely narrows the left lateral recess, and likely impinges traversing left S1 nerve roots. Mild facet arthropathy. Minimal spinal canal narrowing. Mild left without right neural foraminal narrowing. Small probable right renal cyst. Impression: 1. At L5-S1, left subarticular disc extrusion has increased in size and likely impinges traversing left S1 nerve roots. Mild left neural foraminal narrowing. 2. No spinal canal stenosis. Dictated by Feroz Parker MD @ 11/13/2024 10:11:22 AM (Electronically Signed)
== END 2024-11-12 14:13 | disposition home or self-care (01) ==
LOC: MRI 14:13
PROVIDERS: PCP Family Medicine; Visit Provider Family Medicine
DX: M54.10 Radiculopathy, site unspecified (principal); M51.27 Other intervertebral disc displacement, lumbosacral region
CPT/HCPCS: 72148